=== PATIENT | female | born 1935 | race Caucasian/White ===

== ENCOUNTER 2021-07-29 15:26 | Inpatient (IN) ==
--- NOTE | 2021-07-29 16:21 | Emergency Department Note ---
Impression & Plan Unwitnessed fall, Fracture of femoral neck, right, closed, Traumatic hematoma of left forearm ED Provider Note CHIEF COMPLAINT: Fall HISTORY OF PRESENT ILLNESS: Shawna Pereira is an 86 year old female with history of dementia, HTN and DLD who presents to the Emergency Department with her keara rs for evaluation after she suffered an unwitnessed fall this afternoon. The patient is a poor historian secondary to dementia but states that she had gotten up from her chair when her legs seemed to give out from underneath of her which caused her to fall onto the floor. She denies hitting her head or losing consciousness during the episode but believes that she struck her left forearm off of something as she developed a bruise. The patient states that she was unable to get up off of the floor as there was nothing for her to help pull herself up. She waited on the floor for approximately 30 minutes until her daughter showed up for a visit and found her sitting on the floor in front of her chair. Daughter states that after they helped her up off of the floor, she was complaining of increased pain to her bilateral hips and left knee. She does have a known history of arthritis and wears a brace on her left knee but states that it is more painful than normal. The patient denies feeling lightheaded/dizzy or having chest pain, shortness of breath or any other prodromal symptoms prior to falling. She also denies recent fevers/chills, cough, abdominal pain, nausea, vomiting, diarrhea or urinary symptoms. The patient does live alone but family states that they visit almost every day and when they spoke to her on the phone yesterday she was doing well. The patient is not on any anticoagulants/antiplatelets. REVIEW OF SYSTEMS: 10 systems were reviewed and were negative unless otherwise stated in HPI as above PHYSICAL EXAM: VITALS: Vitals are noted on the nurse's note and reviewed by myself. Vital signs stable. General: Resting in bed, no acute distress HEENT: Normocephalic, atraumatic, PERRL, EOMI, mucous membranes moist, oropharynx clear Neck: No mid-line or paraspinal cervical tenderness Resp: Good inspiratory effort on room air, lung sounds clear bilaterally, no tenderness to palpation of the bilateral chest wall CV: Regular rate and rhythm, peripheral pulses palpated Back: No midline tenderness to the thoracic spine, no midline tenderness to the lumbar spine, no obvious step-offs or deformities Abd: Soft, non-tender to palpation MSK/Integ: No obvious long bone deformities. Hematoma to the left forearm with mild tenderness to palpation. ROM of the LUE remains intact without significant pain or difficulty, sensation and radial pulse intact. No tenderness to palpation over the RUE, continues with FROM without pain, sensation and radial pulse intact. Tender to palpation over the bilateral hips and left knee. ROM of the BLE intact but limited secondary to pain. Sensation and d/p pulses intact Neuro: Awake, alert, interacting and answering questions appropriately, asking some repetitive questions but re-directable Differential diagnosis includes fracture, subluxation, dislocation, contusion, ligamentous injury, neurovascular, skull fracture, intracranial injury, cervical spine injury as well as other pathologies were considered. EMERGENCY DEPARTMENT COURSE: Physical exam and history were performed. Nursing triage notes, EMR, and medication list were personally reviewed. Patient appears to have suffered an unwitnessed fall this afternoon. She is a poor historian secondary to dementia but states that she had gotten up from her chair when her legs seem to give out from underneath of her which caused her to fall onto the floor. When daughter went to visit her this afternoon, she was still sitting on the floor in front of her chair. Additional history as described above. On exam, the patient was resting in bed, no acute distress. She denied having pain to her head or neck and there were no outward signs of trauma here. She did not have any obvious long bone deformities. She did have a hematoma to her left forearm with mild tenderness to palpation. Range of motion of the LUE remained intact without significant pain or difficulty. Sensation and radial pulse intact. She did have tenderness to palpation over the bilateral hips and left knee. ROM of the BLE intact but limited secondary to pain. Sensation and DP pulse intact. She did also note increased pain to her right hip when I attempted to sit her up in bed. No other significant findings on exam as above. As the patient has a history of dementia and the fall was unwitnessed, CAT scan of the head and C-spine were obtained and reviewed by radiologist and myself as below. CAT scan of the head did show cerebral cortical atrophy and remote small vessel disease, likely consistent with her history of dementia. No acute skull fracture or intracerebral pathology. Cervical spine with osteopenia and marked degenerative disc and degenerative joint disease. Previous fusion of the cervical spine from C2-C5 and osteopenia. No acute osseous pathology. X-rays of the left forearm, pelvis/bilateral hips and left knee were also obtained and reviewed by radiologist and myself as below. X-rays did show evidence for a nondisplaced, impacted fracture of the right femoral neck as well as osteopenia and osteoarthritis. Upon reevaluation, the patient was doing well. I discussed the results of the above findings with her and her daughters at bedside. I also contacted Dr. Aguirre of orthopedics who recommended admission with the hospitalist. I updated the patient and her daughters on my discussion with Dr. Aguirre and his recommendations to stay in the hospital. Although the patient was apprehensive to stay, she eventually agreed as her daughters had also agreed that it is in her best interest and the safest option for her until further interventions can be arranged for her right hip fracture. [facility] the patient for further management. The patient and her daughters verbalized understanding and agreement with this treatment plan. The chart was completed utilizing [employer] Speech Voice Recognition Software. Grammatical errors, random word insertions, pronoun errors, and incomplete sentences are an occasional consequence of this system due to software limitations, ambient noise, and hardware issues. Any formal questions or concerns about the content, text, or information contained within the body of this dictation should be directly addressed to the provider for clarification. Past Med/Surg History Medical History (Updated 07/29/21 @ 22:45 by Hailey Agrawal PA-C) Dementia Dyslipidemia HTN (hypertension) Surgical History (Updated 07/29/21 @ 22:44 by Hailey Agrawal PA-C) No pertinent past surgical history Social History Smoking Status: Never smoker Feels Safe at Home: Yes Allergies Allergies Allergy/AdvReac Type Severity Reaction Status Date / Time No Known Allergies Verified 07/29/21 19:02 Home Meds Home Medications Medication Instructions Recorded Confirmed lisinopril 20 mg tablet 20 mg PO QAM 07/29/21 07/29/21 multivitamin with minerals-folic 2 tab PO QAM 03/08/22 03/08/22 acid 200 mcg chewable tablet (Adult Multivitamin Gummies) simvastatin 10 mg tablet 1 mg PO QPM 07/29/21 07/29/21 Results & Data (ED) Vital Signs Vital Signs - 24 hr 07/29/21 15:29 07/29/21 19:00 Temperature 36.8 C Temperature Source Temporal Artery Scan Pulse Rate 97 H Pulse Rate [Left Finger] 98 H Respiratory Rate 18 21 Respiratory Effort / Characteristics Non-Labored Blood Pressure 183/77 H Blood Pressure [Left Arm] 155/71 H Blood Pressure Mean 112 Blood Pressure Mean [Left Arm] 99 Blood Pressure Position Sitting Pulse Oximetry 98 98 Oxygen Delivery Method Room Air Room Air Sepsis Recent Fever Within 48 Hours No Sepsis New/Unexplained Change in Mental Status No Sepsis Action Taken by Nursing No Action Required Laboratory Data Lab Results 07/29/21 Range/Units 19:07 SARS-CoV-2, RNA, NAAT NEGATIVE (NEGATIVE) Imaging Data Radiologist's Impression: Cervical Spine CT 07/29/21 16:03 CT cervical spine wo con CLINICAL HISTORY: Unwitnessed fall, dementia . Neck pain COMPARISON STUDY: No previous studies for comparison. CT DOSE: TECHNIQUE: Standard CT of the Cervical Spine was performed without IV contrast. A dose lowering technique was utilized adhering to the principles of ALARA. FINDINGS: Bones: The bones are diffusely osteopenic. There is straightening of expected cervical lordosis with evidence for fusion of the C2-C5 vertebral bodies anteriorly and there posterior elements. There is no evidence for an acute fracture or malalignment. The heights of the vertebral bodies are maintained. The vertebral bodies are in anatomic alignment. The odontoid is intact. Degenerative changes are seen at the atlantoaxial articulation. Disc spaces: There is marked disc space narrowing and disc loss at C2-C5 there is marked disc space narrowing at C6-7. Apophyseal joints: Marked degenerative apophyseal joint disease and fusion of the apophyseal joints is again noted throughout the cervical spine. Soft tissues: The prevertebral soft tissues are within normal limits. IMPRESSION: 1. Osteopenia with no acute osseous pathology. 2. Fusion of the cervical spine from C2 through C5 involving both vertebral bodies and posterior elements. 3. Marked degenerative disc and degenerative joint disease are also present. ACT 112: Negative or not required by law. Electronically signed by: Jorge Conde M.D. 07/29/2021 4:44 PM Forearm X-Ray 07/29/21 16:03 XR forearm LT 2V CLINICAL HISTORY: Fall, hematoma. COMPARISON STUDY: No previous studies for comparison. TECHNIQUE: AP and lateral left forearm views FINDINGS: Bones: The bones are osteopenic. There is no evidence for an acute fracture or dislocation. There is no lytic or blastic lesion. Joints: There is marked narrowing of the wrist joint space. The elbow joint appears intact. The bones are in anatomic alignment. Soft tissues: There is no focal soft tissue abnormality. There is no radiopaque foreign body. IMPRESSION: 1. No acute osseous pathology. 2. Osteopenia and osteoarthritis. ACT 112: Negative or not required by law. Electronically signed by: Jorge Conde M.D. 07/29/2021 6:[address] 07/29/21 16:03 CT head/brain wo con CLINICAL HISTORY: Unwitnessed fall, dementia COMPARISON STUDY: 07/04/2009 CT DOSE: 977.39 mGy.cm TECHNIQUE: Standard CT of the Brain was performed without IV contrast. A dose lowering technique was utilized adhering to the principles of ALARA. FINDINGS: Extraaxial space: There is no evidence for subdural hematoma. There are no extra-axial fluid collections. Ventricles and cisterns: The ventricles are mildly dilated bilaterally. There is no evidence for midline shift or mass effect. Parenchyma: There is no subarachnoid or intraparenchymal hemorrhage. There is no evidence for an acute infarct or cerebral edema. There is mild cerebral cortical atrophy and decreased attenuation in the periventricular white matter representing remote small vessel disease. There are no gross mass lesions. Osseous structures: There is no evidence for an acute fracture. The visualized paranasal sinuses are clear. The mastoid air cells are clear bilaterally. Soft tissues: There is no evidence for focal soft tissue swelling. IMPRESSION: 1. No acute intracerebral pathology. 2. Cerebral cortical atrophy and remote small vessel disease. ACT 112: Negative or not required by law. Electronically signed by: Jorge Conde M.D. 07/29/2021 4:40 PM Hip/Pelvis X-Ray 07/29/21 16:03 XR hip AROLDO 2v w pelvis CLINICAL HISTORY: Fall, pain. COMPARISON STUDY: No previous studies for comparison. TECHNIQUE: AP pelvis and bilateral hips 2 views FINDINGS: Bones: The bones are osteopenic. There is evidence for an impacted subcapital fracture of the right femoral neck particularly laterally. No other definite evidence for fracture is seen. The remaining visualized bones of the pelvis are intact. There is no lytic or blastic lesion. Joints: There is marked narrowing of the right hip joint space and moderate narrowing of the left hip joint space. The bones are in anatomic alignment. Soft tissues: There is no focal soft tissue abnormality. There is no radiopaque foreign body. IMPRESSION: 1. Osteopenia and osteoarthritis. 2. Evidence for a nondisplaced, impacted fracture of the right femoral neck particularly along the lateral aspect. If indicated clinically, CT could be obtained for further evaluation. ACT 112: Negative or not required by law. Electronically signed by: Jorge Conde M.D. 07/29/2021 6:00 PM Knee X-Ray 07/29/21 16:03 XR knee LT 3V CLINICAL HISTORY: Fall, pain. COMPARISON STUDY: No previous studies for comparison. TECHNIQUE: 4 left knee views FINDINGS: Bones: The bones are osteopenic. There is no evidence for an acute fracture or dislocation. There is no lytic or blastic lesion. Joints: There is moderate narrowing of the lateral joint compartment and patellofemoral joint. There is no evidence for an intra-articular effusion. The bones are in anatomic alignment. Soft tissues: There is no focal soft tissue abnormality. There is no radiopaque foreign body. IMPRESSION: 1. No acute osseous pathology. 2. Osteopenia and osteoarthritis. ACT 112: Negative or not required by law. Electronically signed by: Jorge Conde M.D. 07/29/2021 5:58 PM Discharge Plan Visit Data Chief Complaint: Fall Stated Complaint: FALL, HEMATOMA ON ARM, KNEE AND HIP PAIN ED Provider: Epifanio Graham ED Midlevel Provider: Hailey Agrawal Discharge Problem: Unwitnessed fall, Fracture of femoral neck, right, closed, Traumatic hematoma of left forearm Patient Disposition: Admitted As Inpatient Discharge Instructions Interventions: ED Discharge Assessment Last Done: 07/29/21 21:29
--- NOTE | 2021-07-29 16:42 | CT Scan Report ---
CT head/brain wo con CLINICAL HISTORY: Unwitnessed fall, dementia COMPARISON STUDY: 07/04/2009 CT DOSE: 977.39 mGy.cm TECHNIQUE: Standard CT of the Brain was performed without IV contrast. A dose lowering technique was utilized adhering to the principles of ALARA. FINDINGS: Extraaxial space: There is no evidence for subdural hematoma. There are no extra-axial fluid collecti ons. Ventricles and cisterns: The ventricles are mildly dilated bilaterally. There is no evidence for midl ine shift or mass effect. Parenchyma: There is no subarachnoid or intraparenchymal hemorrhage. There is no evidence for an acut e infarct or cerebral edema. There is mild cerebral cortical atrophy and decreased attenuation in the periventricular white matter representing remote small vessel disease. There are no gross mass lesio ns. Osseous structures: There is no evidence for an acute fracture. The visualized paranasal sinuses are clear. The mastoid air cells are clear bilaterally. Soft tissues: There is no evidence for focal soft tissue swelling. IMPRESSION: 1. No acute intracerebral pathology. 2. Cerebral cortical atrophy and remote small vessel disease. ACT 112: Negative or not required by law. Electronically signed by: Jorge Conde M.D. 07/29/2021 4:40 PM
--- NOTE | 2021-07-29 16:46 | CT Scan Report ---
CT cervical spine wo con CLINICAL HISTORY: Unwitnessed fall, dementia . Neck pain COMPARISON STUDY: No previous studies for comparison. CT DOSE: TECHNIQUE: Standard CT of the Cervical Spine was performed without IV contrast. A dose lowering ryan hnique was utilized adhering to the principles of ALARA. FINDINGS: Bones: The bones are diffusely osteopenic. There is straightening of expected cervical lordosis with evidence for fusion of the C2-C5 vertebral bodies anteriorly and there posterior elements. There is n o evidence for an acute fracture or malalignment. The heights of the vertebral bodies are maintained. The vertebral bodies are in anatomic alignment. The odontoid is intact. Degenerative changes are see n at the atlantoaxial articulation. Disc spaces: There is marked disc space narrowing and disc loss at C2-C5 there is marked disc space n arrowing at C6-7. Apophyseal joints: Marked degenerative apophyseal joint disease and fusion of the apophyseal joints i s again noted throughout the cervical spine. Soft tissues: The prevertebral soft tissues are within normal limits. IMPRESSION: 1. Osteopenia with no acute osseous pathology. 2. Fusion of the cervical spine from C2 through C5 involving both vertebral bodies and posterior sleetmute ents. 3. Marked degenerative disc and degenerative joint disease are also present. ACT 112: Negative or not required by law. Electronically signed by: Jorge Conde M.D. 07/29/2021 4:44 PM
--- NOTE | 2021-07-29 18:00 | XRay Report ---
XR knee LT 3V CLINICAL HISTORY: Fall, pain. COMPARISON STUDY: No previous studies for comparison. TECHNIQUE: 4 left knee views FINDINGS: Bones: The bones are osteopenic. There is no evidence for an acute fracture or dislocation. There is no lytic or blastic lesion. Joints: There is moderate narrowing of the lateral joint compartment and patellofemoral joint. There is no evidence for an intra-articular effusion. The bones are in anatomic alignment. Soft tissues: There is no focal soft tissue abnormality. There is no radiopaque foreign body. IMPRESSION: 1. No acute osseous pathology. 2. Osteopenia and osteoarthritis. ACT 112: Negative or not required by law. Electronically signed by: Jorge Conde M.D. 07/29/2021 5:58 PM
--- NOTE | 2021-07-29 18:02 | XRay Report ---
XR hip AROLDO 2v w pelvis CLINICAL HISTORY: Fall, pain. COMPARISON STUDY: No previous studies for comparison. TECHNIQUE: AP pelvis and bilateral hips 2 views FINDINGS: Bones: The bones are osteopenic. There is evidence for an impacted subcapital fracture of the right f emoral neck particularly laterally. No other definite evidence for fracture is seen. The remaining vi sualized bones of the pelvis are intact. There is no lytic or blastic lesion. Joints: There is marked narrowing of the right hip joint space and moderate narrowing of the left hip joint space. The bones are in anatomic alignment. Soft tissues: There is no focal soft tissue abnormality. There is no radiopaque foreign body. IMPRESSION: 1. Osteopenia and osteoarthritis. 2. Evidence for a nondisplaced, impacted fracture of the right femoral neck particularly along the la teral aspect. If indicated clinically, CT could be obtained for further evaluation. ACT 112: Negative or not required by law. Electronically signed by: Jorge Conde M.D. 07/29/2021 6:00 PM
--- NOTE | 2021-07-29 18:03 | XRay Report ---
XR forearm LT 2V CLINICAL HISTORY: Fall, hematoma. COMPARISON STUDY: No previous studies for comparison. TECHNIQUE: AP and lateral left forearm views FINDINGS: Bones: The bones are osteopenic. There is no evidence for an acute fracture or dislocation. There is no lytic or blastic lesion. Joints: There is marked narrowing of the wrist joint space. The elbow joint appears intact. The bones are in anatomic alignment. Soft tissues: There is no focal soft tissue abnormality. There is no radiopaque foreign body. IMPRESSION: 1. No acute osseous pathology. 2. Osteopenia and osteoarthritis. ACT 112: Negative or not required by law. Electronically signed by: Jorge Conde M.D. 07/29/2021 6:01 PM
--- NOTE | 2021-07-29 21:30 | CT Scan Report ---
CT hip RT wo con CLINICAL HISTORY: Status post fall with right hip pain. Suspicion of a subcapital fracture on standar d radiographs. COMPARISON STUDY: Standard radiographs from 07/29/2021 CT DOSE: 1102.68 mGy.cm TECHNIQUE: Standard CT of the right hip is performed without IV contrast. Multiplanar reconstruction is performed. A dose lowering technique was utilized adhering to the principles of ALARA. FINDINGS: Bones: The bones are osteopenic. By CT, there is no evidence for an impacted fracture of the right fe moral neck as suspected radiographically. There are no lytic or blastic lesions. Joints: There is marked narrowing of the right hip joint space particularly superiorly. Subchondral s clerosis and subchondral cyst formation are present. The bones are in anatomic alignment. Soft tissues: There is no focal soft tissue swelling. There are no focal fluid collections. IMPRESSION: 1. Osteopenia with no evidence for an impacted subcapital fracture as suspected radiographically. 2. Marked osteoarthritis of the right hip. ACT 112: Negative or not required by law. Electronically signed by: Jorge Conde M.D. 07/29/2021 9:29 PM
--- NOTE | 2021-07-29 21:35 | CT Scan Report ---
CT pelvis wo con CLINICAL HISTORY: Status post fall with right hip pain. Evaluate for right subcapital fracture COMPARISON: Standard radiographs from 07/29/2021 CT DOSE: TECHNIQUE: Standard CT of the Pelvis without intravenous contrast was performed. This CT exam was performed using one or more of the following dose reduction techniques: Automated ex posure control, adjustment of the mA and/or kV according to patient size, or use of iterative reconst ruction technique. FINDINGS: Bones: The bones are osteopenic. There is no evidence for an acute fracture or dislocation. There are no lytic or blastic lesions. Joints: There is marked narrowing of the right hip joint space and moderate narrowing of the left hip joint space. The bones are in anatomic alignment. Soft tissues: There is no focal soft tissue swelling. There are no focal fluid collections. IMPRESSION: 1. No acute osseous pathology. 2. Osteopenia. 3. Osteoarthritis of both hips, right greater than left. ACT 112: Negative or not required by law. Electronically signed by: Jorge Conde M.D. 07/29/2021 9:33 PM
[2021-07-29] MEDS ORDERED: MoRPHine SULFATE 2 MG/ML CARP IV PRN (22:04)
[2021-07-29] MEDS ORDERED: SODIUM CHLORIDE 0.9% 1000ML 1,000 ML IV SCH (22:04)
[2021-07-29] MEDS ORDERED: ACETAMINOPHEN 325 MG TAB PO PRN (22:04)
[2021-07-29] MEDS ORDERED: SIMVASTATIN 10 MG TAB PO SCH (22:04)
[2021-07-29] MEDS ORDERED: POLYETHYLENE (MIRALAX) 17 GM PACK PO PRN (22:04)
--- NOTE | 2021-07-29 22:08 | History and Physical Report ---
DATE OF ADMISSION: 07/29/2021. CHIEF COMPLAINT: Status post fall and suspected right hip fracture. HISTORY OF PRESENT ILLNESS: An 86-year-old female with past medical history significant for hyperlipidemia, prediabetes, hypertension, stage III chronic kidney disease, history of mild dementia, who lives alone, ambulates okay at home. The patient daughter says she was found on the floor at home today. The patient states she was going to the other room when she slipped and fell down and she could not get up. When the daughter came, she was on the floor. Last time the daughter talked to her was yesterday and she was doing okay, and she was brought in here and she was found to have a left hip fracture on x ray. The patient does not want to stay in the hospital, but finally agreed to stay. She is sitting on the chair. With assistance, she was able to walk from the bed to the chair. Denies any significant pain at this time, seems comfortable. She did not hit her head when she fell and no loss of consciousness. Denies any headache. No blurred visions, no earache. She says no sore throat, no cough, no fever, no chills, no nausea, no vomiting, no chest pain or shortness of breath, no abdominal pain. Normal bowel and bladder movements. Daughter is in the room. ALLERGIES: No known drug allergies. PAST MEDICAL HISTORY: As mentioned above. PAST SURGICAL HISTORY: Total abdominal hysterectomy with removal of tubes. MEDICATIONS: The patient is on lisinopril 20 mg p.o. daily, vitamins 2 tablets p.o. a.m., simvastatin 10 mg p.o. daily. FAMILY HISTORY: Significant for sister had lung cancer, diabetes; mother had heart disorder. SOCIAL HISTORY: , lives alone. No smoking, no alcohol, no drug use. REVIEW OF SYSTEMS: As per HPI. Rest of review of systems is negative. PHYSICAL EXAMINATION: GENERAL: The patient is of moderate built, not in acute distress. VITAL SIGNS: Temperature 36.8, pulse 98, respiratory rate 21, blood pressure 155/71, oxygen 98% on room air. HEENT: Pupils equal, round and reactive to light. Oral mucosa moist. NECK: No JVD, no neck masses. CARDIOVASCULAR: S1 and S2 heard. Regular rate and rhythm. No murmur, no gallop. RESPIRATORY SYSTEM: Normal AP diameter. No accessory muscle use. No wheezing, no crackles. ABDOMEN: Soft, bowel sounds present, nontender, no distention. CENTRAL NERVOUS SYSTEM: Alert and oriented x3, mild confusion with dates. Speech is clear. No facial droop. Obeys simple commands. Insight is okay. Moves extremities. EXTREMITIES: Bilateral lower extremity, no edema, no erythema seen. Bruise seen of left fore arm. Able to move her lower extremities without any pain. LABORATORY DATA: COVID negative. IMAGING STUDIES: Show knee x-ray; osteopenia and osteoarthritis of the left knee. Pelvis and hip x-ray; osteopenia and osteoarthritis, evidence for a nondisplaced impacted fracture of the femoral neck, particularly on the lateral aspect. If indicated clinically, CT would be obtained for further evaluation. CT of the head; no acute findings. Left forearm x-ray; osteopenia, osteoarthritis. Cervical spine CT; osteopenia, fusion of the cervical spine from C2-C5 involving both vertebral bodies and posterior elements. ASSESSMENT AND PLAN: This is an 86-year-old female who presents with fall and found to have a left hip fracture. 1. Fall and Right hip fracture: The patient does not have significant pain, was able to ambulate to the chair with assistance, does not want to stay in the hospital. We will get a CT of the pelvis and CT hip to get a picture. Consult orthopedics. N.p.o. after midnight. Pain control. We will get a preoperative EKG and preoperative chest x-ray and laboratories. If labs, ekg and cxr ok the patient is at acceptable risk to proceed with surgery, if surgery planned 2. History of hypertension: Continue lisinopril with holding parameters. 3. Hyperlipidemia: Continue statin. 4. History of mild dementia: Monitor for any delirium. 5. History of prediabetes: Follow HbA1c level. Follow the blood sugars. 6. Deep venous thrombosis prophylaxis: Could not place sequential compression devices because of the hip fracture. Could not place anticoagulation because of any plan of procedures. Further anticoagulation as per orthopedics. DISPOSITION: Level 1 full code. PT/OT prior to discharge. Social service to help with discharge planning. Addendum: CT Right hip and pelvic CT: no fracture identified. Await ortho input. Pt/OT when able to. Job ID: [id number] [facility]
[2021-07-29] MEDS ORDERED: GLUCAGON FOR INJ 1 MG VIAL IM PRN (23:00)
[2021-07-29] MEDS ORDERED: GLUCOSE 10 TABS/TUBE PO PRN (23:00)
[2021-07-29] MEDS ORDERED: DEXTROSE 50% 50 ML SYRINGE IV PRN (23:00)
[2021-07-29] MEDS ORDERED: GLUCOSE 40% GEL 15 GM TUBE PO PRN (23:00)
[2021-07-29] MEDS ORDERED: CARBOHYDRATES FOR HYPOGLYCEMIA PO PRN (23:00)
[2021-07-29] MEDS: SIMVASTATIN 10 MG TAB PO SCH (23:47)
[2021-07-30] MEDS ORDERED: INSULIN ASPART PER UNIT SC SCH (06:00)
[2021-07-30 06:29] LABS: Basophils # (auto) 0.02 K/uL (0-0.2); Basophils % (auto) 0.3 %; Eosinophils # (auto) 0.08 K/uL (0-0.5); Eosinophils % (auto) 1.1 %; Hematocrit (blood only) 35.6 % (37-47); Hemoglobin 12.2 g/dL (12.0-16.0); Immature Granulocytes # (auto) 0.01 K/uL (0.00-0.02); Immature Granulocytes % (auto) 0.1 %; Lymphocytes # (auto) 2.59 K/uL (1.2-3.4); Lymphocytes % (auto) 34.7 %; Mean Corpuscular Hemoglobin 29.8 pg (25-34); Mean Corpuscular Hgb Conc 34.3 g/dL (32-36); Mean Platelet Volume 9.4 fL (7.4-10.4); Monocytes # (auto) 0.67 K/uL (0.11-0.59); Neutrophils # (auto) 4.09 K/uL (1.4-6.5); Neutrophils % (auto) 54.8 %; Platelet Count 251 K/uL (130-400); RDW Coefficient of Variation 12.9 % (11.5-14.5); RDW Standard Deviation 41.2 fL (36.4-46.3); Red Blood Count 4.09 M/uL (4.2-5.4); White Blood Count 7.46 K/uL (4.8-10.8)
[2021-07-30 06:48] LABS: BUN Creatinine Ratio 12.5 (10-20); Calcium 8.3 mg/dl (8.5-10.1); Creatinine Clr Calc Pharmacy 56.8 ml/min; Est GFR (African American) 87.9 ml/min; Est GFR (Non-African American) 75.8 ml/min; Magnesium 1.9 mg/dl (1.7-2.4); Potassium 3.7 mmol/L (3.5-5.1)
--- NOTE | 2021-07-30 07:07 | XRay Report ---
XR chest 1V portable HISTORY: 86 years-old Female pre op preoperative exam. No acute chest complaints. COMPARISON: None TECHNIQUE: AP view of the chest FINDINGS: The cardiac silhouette is upper limits of normal in size. Mitral annular calcifications. No pneumotho rax, pleural effusion, airspace consolidation or overt pulmonary edema. Osteoarthritis of the shoulde rs. The bones appear grossly intact. IMPRESSION: Cardiomegaly without acute process. ACT 112: Negative or not required by law. The above report was generated using voice recognition software. It may contain grammatical, syntax o r spelling errors. Electronically signed by: Konstantin Menchaca M.D. 07/30/2021 7:06 AM
--- NOTE | 2021-07-30 08:01 | Orthopedic Consultation ---
Date of Consultation July 30, 2021 Assessment & Plan (1) Arthritis of right hip: (2) Right hip pain: We discussed the x-ray and CT scan findings with the patient and her daughter. Her physical exam is not consistent with a femoral neck fracture (particularly her ability to weight bear with minimal pain), and with a negative CT scan, do not feel that surgery is indicated. Recommend she mobilize with PT/OT WBAT with walker. She may discharge from orthopaedics standpoint. Follow-up Carla 2 weeks. (3) Unwitnessed fall: Supervising Physician Co-Signing Physician Notes I saw and examined the patient and spoke with Dr. Conde the radiologist who read her CT scan. He was quite confident there was no fracture in her hip, so don't believe MRI indicated at present. Agree with above note. Follow-up with me in 2 weeks with x-rays. Will need to return to ER or clinic immediately if her condition worsens. History of Present Illness Reason for Consultation: Questionable Right impacted femoral neck fracture Requesting Physician: Dr. Janes Aguirre Attending Physician: Chinyere Turner MD History of Present Illness This 86-year-old female was seen in the emergency department yesterday. Patient states she fell after tripping on the leg of her chair 2 days ago. She states that she fell onto her right side and yesterday had difficulty ambulating and was taken to the emergency department. Patient states that she does have pain in her right leg more so in her knee and the lateral aspect of her thigh. She states she is able to put weight down on it and is able to move her leg without significant pain. She denies chest pain, shortness of breath, fever, chills, sweats, lethargy or numbness or tingling in the right lower extremity. Allergies Allergy/AdvReac Type Severity Reaction Status Date / Time No Known Allergies Verified 07/29/21 19:02 Home Medications Medication Instructions Recorded Confirmed Type lisinopril 20 mg tablet 20 mg PO QAM 07/29/21 07/29/21 History multivitamin with minerals-folic 2 tab PO QAM 07/29/21 07/29/21 History acid 200 mcg chewable tablet (Adult Multivitamin Gummies) simvastatin 10 mg tablet 10 mg PO QPM 07/29/21 07/29/21 History calcium 600 mg capsule 1,200 mg PO DAILY 07/30/21 07/30/21 History cholecalciferol (vitamin D3) 10 10 mcg PO DAILY 07/30/21 07/30/21 History mcg (400 unit) capsule (Vitamin D3) Patient History Medical History Dementia Dyslipidemia HTN (hypertension) Obesity Surgical History No pertinent past surgical history Social History Smoking Status: Never smoker Second Hand Exposure: No; Do You Dip or Chew Tobacco: No; Tobacco Cessation Education Requested by Patient: No Hx Alcohol Use: Yes Alcohol type: beer Hx Substance Use: No Preferred Language: Panamanian Communication Ability: Impaired Bleaching Supervisor Required: No Beliefs That Will Affect Care: None Current Living Situation: Alone Other Information That Helps Us Care for You: No Feels Safe at Home: Yes Assistive Devices: Cane Review of Systems Review of Systems: All systems reviewed & are unremarkable except as noted in Subjective Physical Exam Physical Exam: Right lower extremity: Patient is able to perform an active straight leg raise test. She is able to actively dorsi and plantarflex her foot without difficulty. She does experience some tenderness to palpation over the medial aspect of the knee and there is mild edema. She has no pain with passive hip flexion to 90 degrees. There is no pain with passive external rotation to 50 degrees however patient does experience pain with internal rotation past 10 degrees. There is some mild tenderness to palpation over the femur just proximal to the greater trochanter. There is no edema, erythema, ecchymosis, warmth or palpable deformity. There is no shortening or external rotation. Quad strength is 4 out of 5. Patient is neurovascularly intact in right lower extremity. Her peripheral pulses are 2+. Her capillary refill is less than 2 seconds. Results & Data ([facility]) Vital Signs (Past 12 Hours) Vital Signs Temp Pulse Resp BP Pulse Ox 07/29/21 22:14 36.6 C 85 16 129/76 97 07/29/21 21:00 92 H 19 149/75 H 99 Diagnostic Findings Laboratory Results WBC 7.46 K/uL (4.8-10.8) 07/30/21 05:29 RBC 4.09 M/uL (4.2-5.4) L 07/30/21 05:29 Hgb 12.2 g/dL (12.0-16.0) 07/30/21 05:29 Hct 35.6 % (37-47) L 07/30/21 05:29 MCV 87.0 fL (80-100) 07/30/21 05:29 MCH 29.8 pg (25-34) 07/30/21 05: MCHC 34.3 g/dL (32-36) 07/30/21 05:29 RDW Std Deviation 41.2 fL (36.4-46.3) 07/30/21 05:29 RDW Coeff of Romel 12.9 % (11.5-14.5) 07/30/21 05:29 Plt Count 251 K/uL (130-400) 07/30/21 05:29 MPV 9.4 fL (7.4-10.4) 07/30/21 05:29 Immature Gran % (Auto) 0.1 % 07/30/21 05:29 Neut % (Auto) 54.8 % 07/30/21 05:29 Lymph % (Auto) 34.7 % 07/30/21 05:29 Barron % (Auto) 9.0 % 07/30/21 05:29 Eos % (Auto) 1.1 % 07/30/21 05:29 Baso % (Auto) 0.3 % 07/30/21 05:29 Neut # (Auto) 4.09 K/uL (1.4-6.5) 07/30/21 05:29 Lymph # (Auto) 2.59 K/uL (1.2-3.4) 07/30/21 05:29 Barron # (Auto) 0.67 K/uL (0.11-0.59) H 07/30/21 05:29 Eos # (Auto) 0.08 K/uL (0-0.5) 07/30/21 05:29 Baso # (Auto) 0.02 K/uL (0-0.2) 07/30/21 05:29 Immature Gran # (Auto) 0.01 K/uL (0.00-0.02) 07/30/21 05:29 Sodium 138 mmol/L (136-145) 07/30/21 05:29 Potassium 3.7 mmol/L (3.5-5.1) 07/30/21 05:29 Chloride 106 mmol/L (98-107) 07/30/21 05:29 Carbon Dioxide 24 mmol/L (21-32) 07/30/21 05:29 Anion Gap 8 (3-11) 07/30/21 05:29 BUN 9 mg/dl (6-23) 07/30/21 05:29 Creatinine 0.72 mg/dl (0.6-1.2) 07/30/21 05:29 Est Cr Clr Drug Dosing 56.8 ml/min 07/30/21 05:29 Est GFR ( Amer) 87.9 ml/min 07/30/21 05:29 Est GFR (Non-Af Amer) 75.8 ml/min 07/30/21 05:29 BUN/Creatinine Ratio 12.5 (10-20) 07/30/21 05:29 Glucose 98 mg/dl (70-99(Fasting)) 07/30/21 05:29 POC Glucose 105 mg/dl (70-99) H 07/30/21 05:54 Calcium 8.3 mg/dl (8.5-10.1) L 07/30/21 05:29 Magnesium 1.9 mg/dl (1.7-2.4) 07/30/21 05:29 SARS-CoV-2, RNA, NAAT NEGATIVE (NEGATIVE) 07/29/21 19:[address] 07/29/21 16:03 CT cervical spine wo con CLINICAL HISTORY: Unwitnessed fall, dementia . Neck pain COMPARISON STUDY: No previous studies for comparison. CT DOSE: TECHNIQUE: Standard CT of the Cervical Spine was performed without IV contrast. A dose lowering technique was utilized adhering to the principles of ALARA. FINDINGS: Bones: The bones are diffusely osteopenic. There is straightening of expected cervical lordosis with evidence for fusion of the C2-C5 vertebral bodies anteriorly and there posterior elements. There is no evidence for an acute fracture or malalignment. The heights of the vertebral bodies are maintained. The vertebral bodies are in anatomic alignment. The odontoid is intact. Degenerative changes are seen at the atlantoaxial articulation. Disc spaces: There is marked disc space narrowing and disc loss at C2-C5 there is marked disc space narrowing at C6-7. Apophyseal joints: Marked degenerative apophyseal joint disease and fusion of the apophyseal joints is again noted throughout the cervical spine. Soft tissues: The prevertebral soft tissues are within normal limits. IMPRESSION: 1. Osteopenia with no acute osseous pathology. 2. Fusion of the cervical spine from C2 through C5 involving both vertebral bodies and posterior elements. 3. Marked degenerative disc and degenerative joint disease are also present. ACT 112: Negative or not required by law. Electronically signed by: Jorge Conde M.D. 07/29/2021 4:44 PM Forearm X-Ray 07/29/21 16:03 XR forearm LT 2V CLINICAL HISTORY: Fall, hematoma. COMPARISON STUDY: No previous studies for comparison. TECHNIQUE: AP and lateral left forearm views FINDINGS: Bones: The bones are osteopenic. There is no evidence for an acute fracture or dislocation. There is no lytic or blastic lesion. Joints: There is marked narrowing of the wrist joint space. The elbow joint appears intact. The bones are in anatomic alignment. Soft tissues: There is no focal soft tissue abnormality. There is no radiopaque foreign body. IMPRESSION: 1. No acute osseous pathology. 2. Osteopenia and osteoarthritis. ACT 112: Negative or not required by law. Electronically signed by: Jorge Conde M.D. 07/29/2021 6:[address] 07/29/21 16:03 CT head/brain wo con CLINICAL HISTORY: Unwitnessed fall, dementia COMPARISON STUDY: 07/04/2009 CT DOSE: 977.39 mGy.cm TECHNIQUE: Standard CT of the Brain was performed without IV contrast. A dose lowering technique was utilized adhering to the principles of ALARA. FINDINGS: Extraaxial space: There is no evidence for subdural hematoma. There are no extra-axial fluid collections. Ventricles and cisterns: The ventricles are mildly dilated bilaterally. There is no evidence for midline shift or mass effect. Parenchyma: There is no subarachnoid or intraparenchymal hemorrhage. There is no evidence for an acute infarct or cerebral edema. There is mild cerebral cortical atrophy and decreased attenuation in the periventricular white matter representing remote small vessel disease. There are no gross mass lesions. Osseous structures: There is no evidence for an acute fracture. The visualized paranasal sinuses are clear. The mastoid air cells are clear bilaterally. Soft tissues: There is no evidence for focal soft tissue swelling. IMPRESSION: 1. No acute intracerebral pathology. 2. Cerebral cortical atrophy and remote small vessel disease. ACT 112: Negative or not required by law. Electronically signed by: Jorge Conde M.D. 07/29/2021 4:40 PM Hip/Pelvis X-Ray 07/29/21 16:03 XR hip AROLDO 2v w pelvis CLINICAL HISTORY: Fall, pain. COMPARISON STUDY: No previous studies for comparison. TECHNIQUE: AP pelvis and bilateral hips 2 views FINDINGS: Bones: The bones are osteopenic. There is evidence for an impacted subcapital fracture of the right femoral neck particularly laterally. No other definite evidence for fracture is seen. The remaining visualized bones of the pelvis are intact. There is no lytic or blastic lesion. Joints: There is marked narrowing of the right hip joint space and moderate narrowing of the left hip joint space. The bones are in anatomic alignment. Soft tissues: There is no focal soft tissue abnormality. There is no radiopaque foreign body. IMPRESSION: 1. Osteopenia and osteoarthritis. 2. Evidence for a nondisplaced, impacted fracture of the right femoral neck particularly along the lateral aspect. If indicated clinically, CT could be obtained for further evaluation. ACT 112: Negative or not required by law. Electronically signed by: Jorge Conde M.D. 07/29/2021 6:00 PM Knee X-Ray 07/29/21 16:03 XR knee LT 3V CLINICAL HISTORY: Fall, pain. COMPARISON STUDY: No previous studies for comparison. TECHNIQUE: 4 left knee views FINDINGS: Bones: The bones are osteopenic. There is no evidence for an acute fracture or dislocation. There is no lytic or blastic lesion. Joints: There is moderate narrowing of the lateral joint compartment and patellofemoral joint. There is no evidence for an intra-articular effusion. The bones are in anatomic alignment. Soft tissues: There is no focal soft tissue abnormality. There is no radiopaque foreign body. IMPRESSION: 1. No acute osseous pathology. 2. Osteopenia and osteoarthritis. ACT 112: Negative or not required by law. Electronically signed by: Jorge Conde M.D. 07/29/2021 5:[address] 07/29/21 20:41 CT pelvis wo con CLINICAL HISTORY: Status post fall with right hip pain. Evaluate for right subcapital fracture COMPARISON: Standard radiographs from 07/29/2021 CT DOSE: TECHNIQUE: Standard CT of the Pelvis without intravenous contrast was performed. This CT exam was performed using one or more of the following dose reduction techniques: Automated exposure control, adjustment of the mA and/or kV according to patient size, or use of iterative reconstruction technique. FINDINGS: Bones: The bones are osteopenic. There is no evidence for an acute fracture or dislocation. There are no lytic or blastic lesions. Joints: There is marked narrowing of the right hip joint space and moderate narrowing of the left hip joint space. The bones are in anatomic alignment. Soft tissues: There is no focal soft tissue swelling. There are no focal fluid collections. IMPRESSION: 1. No acute osseous pathology. 2. Osteopenia. 3. Osteoarthritis of both hips, right greater than left. ACT 112: Negative or not required by law. Electronically signed by: Jorge Conde M.D. 07/29/2021 9:[address] 07/29/21 20:42 CT hip RT wo con CLINICAL HISTORY: Status post fall with right hip pain. Suspicion of a subcapital fracture on standard radiographs. COMPARISON STUDY: Standard radiographs from 07/29/2021 CT DOSE: 1102.68 mGy.cm TECHNIQUE: Standard CT of the right hip is performed without IV contrast. Multiplanar reconstruction is performed. A dose lowering technique was utilized adhering to the principles of ALARA. FINDINGS: Bones: The bones are osteopenic. By CT, there is no evidence for an impacted fracture of the right femoral neck as suspected radiographically. There are no lytic or blastic lesions. Joints: There is marked narrowing of the right hip joint space particularly superiorly. Subchondral sclerosis and subchondral cyst formation are present. The bones are in anatomic alignment. Soft tissues: There is no focal soft tissue swelling. There are no focal fluid collections. IMPRESSION: 1. Osteopenia with no evidence for an impacted subcapital fracture as suspected radiographically. 2. Marked osteoarthritis of the right hip. ACT 112: Negative or not required by law. Electronically signed by: Jorge Conde M.D. 07/29/2021 9:29 PM Chest X-Ray 07/30/21 06:00 XR chest 1V portable HISTORY: 86 years-old Female pre op preoperative exam. No acute chest complaints. COMPARISON: None TECHNIQUE: AP view of the chest FINDINGS: The cardiac silhouette is upper limits of normal in size. Mitral annular calcifications. No pneumothorax, pleural effusion, airspace consolidation or overt pulmonary edema. Osteoarthritis of the shoulders. The bones appear grossly intact. IMPRESSION: Cardiomegaly without acute process. ACT 112: Negative or not required by law. The above report was generated using voice recognition software. It may contain grammatical, syntax or spelling errors. Electronically signed by: Konstantin Menchaca M.D. 07/30/2021 7:06 AM
[2021-07-30] MEDS: CEROVITE ADV FORMULA TAB PO SCH (08:05)
[2021-07-30] MEDS: lisinopril 20 MG TAB PO SCH (08:06)
[2021-07-30 08:12] LABS: Estimated Average Glucose 123 mg/dl; Hemoglobin A1C 5.9 % (4.5-5.6)
--- NOTE | 2021-07-30 08:34 | Electrocardiogram Report ---
Test Reason : Blood Pressure : / mmHG Vent. Rate : 084 BPM Atrial Rate : 084 BPM P-R Int : 176 ms QRS Dur : 066 ms QT Int : 378 ms P-R-T Axes : 065 019 043 degrees QTc Int : 446 ms Poor data quality, interpretation may be adversely affected Normal sinus rhythm Normal ECG No previous ECGs available Confirmed by Ajay Glass ([id number]) on 07/30/2021 8:34:20 AM Referred By: REFERRED SELF Confirmed By:Ajay Glass
--- NOTE | 2021-07-30 10:21 | Hospitalist Progress Note ---
Date of Service July 30, 2021 Assessment & Plan (1) Unwitnessed fall: (2) Right hip pain: (3) Pre-diabetes: (4) HTN (hypertension): (5) Dementia: (6) CKD (chronic kidney disease) stage 3, GFR 30-59 ml/min: Plan: This is a 86-year-old female who has significant past medical history of HTN, HLD, prediabetes, dementia, CKD stage III who presented to ED after unwitnessed fall and being found on floor by family. Patient states that she was walking, slipped, fell down and could not get up. Initial x-ray concerning for nondisplaced, impacted fracture of the right femoral neck. Dedicated CT scan was ordered which revealed osteopenia without evidence for impacted fracture; however marked osteoarthritis of right hip. Discussed case with Ortho Dr. Aguirre, initially surgery was recommended; however after revisualization of images on CT surgery has been canceled. No evidence of acute fx. Unwitnessed fall Right hip pain Osteoarthritis of right hip Admitted to med/surg Orthopedics consulted -no surgical indication at this time Consult PT/OT to determine needs - pt lives alone at home Scheduled Tylenol, ice to right hip d/c fluids and she is eating and drinking okay HTN Continue lisinopril Prediabetes A1c 5.9 No Medications indicated HLD Continue statin Dementia without behaviors Mental status waxes and wanes She was alert and oriented x3 for me; however nursing staff reports early this morning very confused Monitor closely for delirium, reorient frequently Family member asked to come in to keep pt calm at bedside DVT prophylaxis: Initiate Lovenox daily Dispo: Pending PT/OT evaluation, per discussion with CM daughters wish for encompass referral with eventual need for 24hr care. Full code PCP: Sudheer Patient was seen and examined in collaboration with Dr. Turner, please see addendum The chart was completed utilizing [employer] Speech voice recognition software. Grammatical errors, random word insertions, pronoun errors, and incomplete sentences are an occasional consequence of this system due to software limitations, ambient noise, and hardware issues. Any formal questions or concerns about the content, text, or information contained within the body of this dictation should be directly addressed to the provider for clarification. Admission and Anticipated Discharge Date Admission Date: July 29, 2021 Supervising Physician Co-Signing Physician Notes Patient was seen and evaluated independently. Chart reviewed. Case discussed with CONCHIS. Agree with assessment and plan as above Subjective Patient was seen and examined in room 375-2. Follow-up right hip pain and questionable hip fracture. She was admitted secondary to fall and right hip pain. Initial right hip x-ray was concerning for fracture; however follow-up CT revealed severe osteoarthritis without fracture. Case was discussed with orthopedics who also discussed with radiology again confirming no fracture. She will not undergo surgical intervention and will have physical and occupational therapy today. At rest she denies any pain. She further denies fever, chills, sweats, lightheadedness, dizziness, chest pain, shortness of breath, nausea, vomiting, abdominal pain. She lives alone at home and ambulates with a cane. At baseline she admits to being able to climb a flight of stairs without getting short of breath or chest pain. Per nursing staff patient was very confused for them this morning. Review of Systems Review of Systems: All systems reviewed & are unremarkable except as noted in HPI & below Physical Exam Physical Exam: Gen: WD/WN, elderly, female, lying in bed NAD, A&O x3 HEENT: Normocephalic, atraumatic, conjunctivae moist, sclerae anicteric, mucous membranes moist. Lung: Clear to Auscultation bilaterally, no wheezes/rales/rhonchi Heart: Regular rate, regular rhythm, no murmurs, rubs, or gallops Abdomen: Soft, NT, ND +BS x 4 Extremities: No edema Skin: Warm, no rash, negative turgor. Results & Data Results & Data ([facility]) Vital Signs (Past 12 Hours) Vital Signs Temp Pulse Resp BP Pulse Ox 07/30/21 07:45 36.6 C 93 H 18 162/65 H 95 07/29/21 22:14 36.6 C 85 16 129/76 97 Laboratory Results Short CBC 07/30/21 Range/Units 05:29 WBC 7.46 (4.8-10.8) K/uL Hgb 12.2 (12.0-16.0) g/dL Hct 35.6 L (37-47) % Plt Count 251 (130-400) K/uL BMP 07/30/21 05:29 Sodium 138 Potassium 3.7 Chloride 106 Carbon Dioxide 24 BUN 9 Creatinine 0.72 Glucose 98 Calcium 8.[address] R Hip IMPRESSION: 1. Osteopenia with no evidence for an impacted subcapital fracture as suspected radiographically. 2. Marked osteoarthritis of the right hip. Medications Administered Current Inpatient Medications Acetaminophen (Acetaminophen 325 Mg Tab) 650 mg PO Q4H PRN PRN Reason: pain/fever Stop: 08/28/21 22:03 Dextrose (Dextrose 50% 50 Ml Syringe) 25 - 50 ml IV UD PRN; Protocol PRN Reason: Hypoglycemia Protocol Stop: 08/28/21 22:59 Glucagon (Glucagon For Inj 1 Mg Vial) 1 mg IM UD PRN; Protocol PRN Reason: Hypoglycemia Protocol Stop: 08/28/21 22:59 Glucose (Glucose 40% Gel 15 Gm Tube) 15 - 30 gm PO UD PRN; Protocol PRN Reason: Hypoglycemia Protocol Stop: 08/28/21 22:59 Glucose (Glucose 10 Tabs/Tube) 4 - 8 tabs PO UD PRN; Protocol PRN Reason: Hypoglycemia Protocol Stop: 08/28/21 22:59 Sodium Chloride (Nss 1000ml) 1,000 mls @ 80 mls/hr IV .[id number] [facility] Stop: 07/30/21 23:03 Last Admin: 07/30/21 00:05 Dose: 80 mls/hr Documented by: Lisinopril (Lisinopril 20 Mg Tab) 20 mg PO QAM [facility] Stop: 08/29/21 08:59 Last Admin: 07/30/21 08:06 Dose: 20 mg Documented by: Miscellaneous (Carbohydrates For Hypoglycemia ) 15 - 30 gm PO UD PRN PRN Reason: Hypoglycemia Treatment Stop: 08/28/21 22:59 Morphine Sulfate (Morphine Sulfate 2 Mg/Ml Carp) 2 mg IV Q4H PRN PRN Reason: Pain Stop: 08/12/21 22:03 Multivitamins/Minerals (Cerovite Adv Formula Tab) 1 tab PO QAM [facility] Stop: 08/29/21 08:59 Last Admin: 07/30/21 08:05 Dose: 1 tab Documented by: Polyethylene Glycol (Polyethylene (Miralax) 17 Gm Pack) 17 gm PO DAILY PRN PRN Reason: Constipation Stop: 08/28/21 22:03 Simvastatin (Simvastatin 10 Mg Tab) 10 mg PO QPM [facility] Stop: 08/28/21 23:44 Last Admin: 07/29/21 23:47 Dose: 10 mg Documented by:
[2021-07-30] MEDS: ACETAMINOPHEN 500 MG TAB PO SCH ×3 (13:07→20:48)
[2021-07-30] MEDS: DOCUSATE SODIUM 100 MG CAP PO SCH (20:47)
[2021-07-30] MEDS: SIMVASTATIN 10 MG TAB PO SCH (20:48)
[2021-07-30] MEDS ORDERED: ENOXAPARIN INJ 40 MG/0.4 ML SYR SQ SCH (21:00)
[2021-07-31 07:08] LABS: Hematocrit (blood only) 37.9 % (37-47); Hemoglobin 13.2 g/dL (12.0-16.0); Mean Corpuscular Hemoglobin 30.2 pg (25-34); Mean Corpuscular Hgb Conc 34.8 g/dL (32-36); Mean Corpuscular Volume 86.7 fL (80-100); Mean Platelet Volume 9.5 fL (7.4-10.4); Platelet Count 266 K/uL (130-400); RDW Standard Deviation 41.9 fL (36.4-46.3); Red Blood Count 4.37 M/uL (4.2-5.4); White Blood Count 6.78 K/uL (4.8-10.8)
[2021-07-31] MEDS: ACETAMINOPHEN 500 MG TAB PO SCH (07:22)
[2021-07-31] MEDS: lisinopril 20 MG TAB PO SCH (07:23)
[2021-07-31] MEDS: DOCUSATE SODIUM 100 MG CAP PO SCH (07:23)
[2021-07-31] MEDS: CEROVITE ADV FORMULA TAB PO SCH (07:23)
[2021-07-31 07:34] LABS: BUN Creatinine Ratio 13.3 (10-20); Calcium 8.7 mg/dl (8.5-10.1); Creatinine Clr Calc Pharmacy 49.2 ml/min; Est GFR (Non-African American) 63.9 ml/min; Potassium 3.9 mmol/L (3.5-5.1)
[2021-07-31] MEDS ORDERED: CALCIUM 600MG + VIT D 400 IU TAB PO SCH (09:00)
[2021-07-31] MEDS ORDERED: CHOLECALCIFEROL 400 UNITS 10 MCG TAB PO SCH (09:00)
--- NOTE | 2021-07-31 09:55 | Orthopedic Progress Note ---
Date of Service July 31, 2021 Assessment & Plan (1) Right hip pain: Plan: May be out of bed as tolerated, recommended use with a walker weight bear as tolerated right lower extremity, range of motion as tolerated. Ice to right hip as needed for pain. PT/OT Elevate right leg as needed. Follow up in 2 weeks as scheduled. Call with problems, questions or concerns. Okay for discharge from ortho standpoint. Will sign off for now, call our office with any further questions. Admission and Anticipated Discharge Date Admission Date: July 29, 2021 Subjective Patient is doing well today, no complaints of pain in right hip. She dressed and ambulating throughout her room, without assistance. States that her hip pain has been improving the last week or so and that if she does get pain in anteriorly in the groin. No hip pain today. Physical Exam Musculoskeletal: Right hip moves freely and without discomfort today. Strength 5/5. No distal edema. Results & Data ([facility]) Vital Signs (Past 12 Hours) Vital Signs Temp Pulse Resp BP Pulse Ox 07/31/21 07:14 36.3 C L 89 18 119/70 97
--- NOTE | 2021-07-31 17:24 | Discharge Summary ---
Date of Service July 31, 2021 Admission HPI Per Admitting Provider An 86-year-old female with past medical history significant for hyperlipidemia, prediabetes, hypertension, stage III chronic kidney disease, history of mild dementia, who lives alone, ambulates okay at home. The patient daughter says she was found on the floor at home today. The patient states she was going to the other room when she slipped and fell down and she could not get up. When the daughter came, she was on the floor. Last time the daughter talked to her was yesterday and she was doing okay, and she was brought in here and she was found to have a left hip fracture on x ray. The patient does not want to stay in the hospital, but finally agreed to stay. She is sitting on the chair. With assistance, she was able to walk from the bed to the chair. Denies any significant pain at this time, seems comfortable. She did not hit her head when she fell and no loss of consciousness. Denies any headache. No blurred visions, no earache. She says no sore throat, no cough, no fever, no chills, no nausea, no vomiting, no chest pain or shortness of breath, no abdominal pain. Normal bowel and bladder movements. Daughter is in the room. Admission Exam Per Admitting Provider GENERAL: The patient is of moderate built, not in acute distress. VITAL SIGNS: Temperature 36.8, pulse 98, respiratory rate 21, blood pressure 155/71, oxygen 98% on room air. HEENT: Pupils equal, round and reactive to light. Oral mucosa moist. NECK: No JVD, no neck masses. CARDIOVASCULAR: S1 and S2 heard. Regular rate and rhythm. No murmur, no gallop. RESPIRATORY SYSTEM: Normal AP diameter. No accessory muscle use. No wheezing, no crackles. ABDOMEN: Soft, bowel sounds present, nontender, no distention. CENTRAL NERVOUS SYSTEM: Alert and oriented x3, mild confusion with dates. Speech is clear. No facial droop. Obeys simple commands. Insight is okay. Moves extremities. EXTREMITIES: Bilateral lower extremity, no edema, no erythema seen. Bruise seen of left fore arm. Able to move her lower extremities without any pain. Principal Diagnosis Fall, right hip pain Discharge Exam Constitutional WD/WN, vitals as above Respiratory normal respiratory effort, lungs clear to auscultation Cardiovascular Rate/Rhythm: regular rate and regular rhythm Vessels: normal peripheral pulses Extremities: no edema Gastrointestinal (Abdomen) Percussion/Palpation: abdomen soft; abdomen nontender Skin no rashes, warm and dry Neurologic no focal motor deficits Psychiatric Orientation: alert, oriented to person and cooperative; + not oriented to place and + not oriented to time Discharge Data Allergies Allergy/AdvReac Type Severity Reaction Status Date / Time No Known Allergies Verified 07/29/21 19:02 Consultations 07/30/21 08:00 Consult Orthopedic Surgery Routine Ordered Studies Laboratory Results WBC 6.78 K/uL (4.8-10.8) 07/31/21 06:30 RBC 4.37 M/uL (4.2-5.4) 07/31/21 06:30 Hgb 13.2 g/dL (12.0-16.0) 07/31/21 06:30 Hct 37.9 % (37-47) 07/31/21 06:30 MCV 86.7 fL (80-100) 07/31/21 06:30 MCH 30.2 pg (25-34) 07/31/21 06:30 MCHC 34.8 g/dL (32-36) 07/31/21 06:30 RDW Std Deviation 41.9 fL (36.4-46.3) 07/31/21 06:30 RDW Coeff of Romel 13.0 % (11.5-14.5) 07/31/21 06:30 Plt Count 266 K/uL (130-400) 07/31/21 06:30 MPV 9.5 fL (7.4-10.4) 07/31/21 06:30 Immature Gran % (Auto) 0.1 % 07/30/21 05:29 Neut % (Auto) 54.8 % 07/30/21 05:29 Lymph % (Auto) 34.7 % 07/30/21 05:29 [place] % (Auto) 9.0 % 07/30/21 05:29 Eos % (Auto) 1.1 % 07/30/21 05:29 Baso % (Auto) 0.3 % 07/30/21 05:29 Neut # (Auto) 4.09 K/uL (1.4-6.5) 07/30/21 05:29 Lymph # (Auto) 2.59 K/uL (1.2-3.4) 07/30/21 05:29 [place] # (Auto) 0.67 K/uL (0.11-0.59) H 07/30/21 05:29 Eos # (Auto) 0.08 K/uL (0-0.5) 07/30/21 05:29 Baso # (Auto) 0.02 K/uL (0-0.2) 07/30/21 05:29 Immature Gran # (Auto) 0.01 K/uL (0.00-0.02) 07/30/21 05:29 Sodium 138 mmol/L (136-145) 07/31/21 06:30 Potassium 3.9 mmol/L (3.5-5.1) 07/31/21 06:30 Chloride 105 mmol/L (98-107) 07/31/21 06:30 Carbon Dioxide 24 mmol/L (21-32) 07/31/21 06:30 Anion Gap 9 (3-11) 07/31/21 06:30 BUN 11 mg/dl (6-23) 07/31/21 06:30 Creatinine 0.83 mg/dl (0.6-1.2) 07/31/21 06:30 Est Cr Clr Drug Dosing 49.2 ml/min 07/31/21 06:30 Est GFR ( Amer) 74.0 ml/min 07/31/21 06:30 Est GFR (Non-Af Amer) 63.9 ml/min 07/31/21 06:30 BUN/Creatinine Ratio 13.3 (10-20) 07/31/21 06:30 Glucose 110 mg/dl (70-99(Fasting)) H 07/31/21 06:30 POC Glucose 105 mg/dl (70-99) H 07/30/21 05:54 Estimat Average Glucose 123 mg/dl 07/30/21 05:29 Hemoglobin A1c 5.9 % (4.5-5.6) H 07/30/21 05:29 Calcium 8.7 mg/dl (8.5-10.1) 07/31/21 06:30 Magnesium 2.0 mg/dl (1.7-2.4) 07/31/21 06:30 SARS-CoV-2, RNA, NAAT NEGATIVE (NEGATIVE) 07/29/21 19:[address] 07/29/21 16:03 CT cervical spine wo con CLINICAL HISTORY: Unwitnessed fall, dementia . Neck pain COMPARISON STUDY: No previous studies for comparison. CT DOSE: TECHNIQUE: Standard CT of the Cervical Spine was performed without IV contrast. A dose lowering technique was utilized adhering to the principles of ALARA. FINDINGS: Bones: The bones are diffusely osteopenic. There is straightening of expected cervical lordosis with evidence for fusion of the C2-C5 vertebral bodies anteriorly and there posterior elements. There is no evidence for an acute fracture or malalignment. The heights of the vertebral bodies are maintained. The vertebral bodies are in anatomic alignment. The odontoid is intact. Degenerative changes are seen at the atlantoaxial articulation. Disc spaces: There is marked disc space narrowing and disc loss at C2-C5 there is marked disc space narrowing at C6-7. Apophyseal joints: Marked degenerative apophyseal joint disease and fusion of the apophyseal joints is again noted throughout the cervical spine. Soft tissues: The prevertebral soft tissues are within normal limits. IMPRESSION: 1. Osteopenia with no acute osseous pathology. 2. Fusion of the cervical spine from C2 through C5 involving both vertebral bodies and posterior elements. 3. Marked degenerative disc and degenerative joint disease are also present. ACT 112: Negative or not required by law. Electronically signed by: Jorge Conde M.D. 07/29/2021 4:44 PM Forearm X-Ray 07/29/21 16:03 XR forearm LT 2V CLINICAL HISTORY: Fall, hematoma. COMPARISON STUDY: No previous studies for comparison. TECHNIQUE: AP and lateral left forearm views FINDINGS: Bones: The bones are osteopenic. There is no evidence for an acute fracture or dislocation. There is no lytic or blastic lesion. Joints: There is marked narrowing of the wrist joint space. The elbow joint appears intact. The bones are in anatomic alignment. Soft tissues: There is no focal soft tissue abnormality. There is no radiopaque foreign body. IMPRESSION: 1. No acute osseous pathology. 2. Osteopenia and osteoarthritis. ACT 112: Negative or not required by law. Electronically signed by: Jorge Conde M.D. 07/29/2021 6:[address] 07/29/21 16:03 CT head/brain wo con CLINICAL HISTORY: Unwitnessed fall, dementia COMPARISON STUDY: 07/04/2009 CT DOSE: 977.39 mGy.cm TECHNIQUE: Standard CT of the Brain was performed without IV contrast. A dose lowering technique was utilized adhering to the principles of ALARA. FINDINGS: Extraaxial space: There is no evidence for subdural hematoma. There are no extra-axial fluid collections. Ventricles and cisterns: The ventricles are mildly dilated bilaterally. There is no evidence for midline shift or mass effect. Parenchyma: There is no subarachnoid or intraparenchymal hemorrhage. There is no evidence for an acute infarct or cerebral edema. There is mild cerebral cortical atrophy and decreased attenuation in the periventricular white matter representing remote small vessel disease. There are no gross mass lesions. Osseous structures: There is no evidence for an acute fracture. The visualized paranasal sinuses are clear. The mastoid air cells are clear bilaterally. Soft tissues: There is no evidence for focal soft tissue swelling. IMPRESSION: 1. No acute intracerebral pathology. 2. Cerebral cortical atrophy and remote small vessel disease. ACT 112: Negative or not required by law. Electronically signed by: Jorge Conde M.D. 07/29/2021 4:40 PM Hip/Pelvis X-Ray 07/29/21 16:03 XR hip AROLDO 2v w pelvis CLINICAL HISTORY: Fall, pain. COMPARISON STUDY: No previous studies for comparison. TECHNIQUE: AP pelvis and bilateral hips 2 views FINDINGS: Bones: The bones are osteopenic. There is evidence for an impacted subcapital fracture of the right femoral neck particularly laterally. No other definite evidence for fracture is seen. The remaining visualized bones of the pelvis are intact. There is no lytic or blastic lesion. Joints: There is marked narrowing of the right hip joint space and moderate narrowing of the left hip joint space. The bones are in anatomic alignment. Soft tissues: There is no focal soft tissue abnormality. There is no radiopaque foreign body. IMPRESSION: 1. Osteopenia and osteoarthritis. 2. Evidence for a nondisplaced, impacted fracture of the right femoral neck par ticularly along the lateral aspect. If indicated clinically, CT could be obtained for further evaluation. ACT 112: Negative or not required by law. Electronically signed by: Jorge Conde M.D. 07/29/2021 6:00 PM Knee X-Ray 07/29/21 16:03 XR knee LT 3V CLINICAL HISTORY: Fall, pain. COMPARISON STUDY: No previous studies for comparison. TECHNIQUE: 4 left knee views FINDINGS: Bones: The bones are osteopenic. There is no evidence for an acute fracture or dislocation. There is no lytic or blastic lesion. Joints: There is moderate narrowing of the lateral joint compartment and patellofemoral joint. There is no evidence for an intra-articular effusion. The bones are in anatomic alignment. Soft tissues: There is no focal soft tissue abnormality. There is no radiopaque foreign body. IMPRESSION: 1. No acute osseous pathology. 2. Osteopenia and osteoarthritis. ACT 112: Negative or not required by law. Electronically signed by: Jorge Conde M.D. 07/29/2021 5:[address] 07/29/21 20:41 CT pelvis wo con CLINICAL HISTORY: Status post fall with right hip pain. Evaluate for right subcapital fracture COMPARISON: Standard radiographs from 07/29/2021 CT DOSE: TECHNIQUE: Standard CT of the Pelvis without intravenous contrast was performed. This CT exam was performed using one or more of the following dose reduction techniques: Automated exposure control, adjustment of the mA and/or kV according to patient size, or use of iterative reconstruction technique. FINDINGS: Bones: The bones are osteopenic. There is no evidence for an acute fracture or dislocation. There are no lytic or blastic lesions. Joints: There is marked narrowing of the right hip joint space and moderate narr owing of the left hip joint space. The bones are in anatomic alignment. Soft tissues: There is no focal soft tissue swelling. There are no focal fluid collections. IMPRESSION: 1. No acute osseous pathology. 2. Osteopenia. 3. Osteoarthritis of both hips, right greater than left. ACT 112: Negative or not required by law. Electronically signed by: Jorge Conde M.D. 07/29/2021 9:[address] 07/29/21 20:42 CT hip RT wo con CLINICAL HISTORY: Status post fall with right hip pain. Suspicion of a subcapital fracture on standard radiographs. COMPARISON STUDY: Standard radiographs from 07/29/2021 CT DOSE: 1102.68 mGy.cm TECHNIQUE: Standard CT of the right hip is performed without IV contrast. Multiplanar reconstruction is performed. A dose lowering technique was utilized adhering to the principles of ALARA. FINDINGS: Bones: The bones are osteopenic. By CT, there is no evidence for an impacted fracture of the right femoral neck as suspected radiographically. There are no lytic or blastic lesions. Joints: There is marked narrowing of the right hip joint space particularly superiorly. Subchondral sclerosis and subchondral cyst formation are present. The bones are in anatomic alignment. Soft tissues: There is no focal soft tissue swelling. There are no focal fluid collections. IMPRESSION: 1. Osteopenia with no evidence for an impacted subcapital fracture as suspected radiographically. 2. Marked osteoarthritis of the right hip. ACT 112: Negative or not required by law. Electronically signed by: Jorge Conde M.D. 07/29/2021 9:29 PM Chest X-Ray 07/30/21 06:00 XR chest 1V portable HISTORY: 86 years-old Female pre op preoperative exam. No acute chest complaints. COMPARISON: None TECHNIQUE: AP view of the chest FINDINGS: The cardiac silhouette is upper limits of normal in size. Mitral annular calcifications. No pneumothorax, pleural effusion, airspace consolidation or overt pulmonary edema. Osteoarthritis of the shoulders. The bones appear grossly intact. IMPRESSION: Cardiomegaly without acute process. ACT 112: Negative or not required by law. The above report was generated using voice recognition software. It may contain grammatical, syntax or spelling errors. Electronically signed by: Konstantin Menchaca M.D. 07/30/2021 7:06 AM Hospital Course (1) Unwitnessed fall: (2) Right hip pain: (3) Pre-diabetes: (4) HTN (hypertension): (5) Dementia: (6) CKD (chronic kidney disease) stage 3, GFR 30-59 ml/min: This is a 86-year-old female who has significant past medical history of HTN, HLD, prediabetes, dementia, CKD stage III who presented to ED after unwitnessed fall and being found on floor by family. Patient states that she was walking, slipped, fell down and could not get up. Initial x-ray concerning for nondisplaced, impacted fracture of the right femoral neck. Dedicated CT scan was ordered which revealed osteopenia without evidence for impacted fracture; however marked osteoarthritis of right hip. Discussed case with Ortho Dr. Aguirre, initially surgery was recommended; however after revisualization of images on CT, surgery was canceled. No evidence of acute fx. Unwitnessed fall Right hip pain Osteoarthritis of right hip PT/OT recommended SNF vs home with 24-hour care Daughters arranged 24-hour care along with home health Patient can be weightbearing as tolerated with use of walker Outpatient follow-up with Ortho in 2 weeks HTN Continue lisinopril Prediabetes A1c 5.9 No Medications indicated HLD Continue statin Dementia without behaviors Mental status waxes and wanes At baseline the day of discharge Total Time Total Time Spent Total Time Spent (In Minutes): 35 Discharge Plan Discharge Items Patient Disposition: Home - Home Health Services Reason For Visit: Fall, right hip pain Discharge Diagnosis: Osteoarthritis of right hip Activity: As commented below Activity Comment: As tolerated per PT/OT, use a walker Weightbearing: Right weightbearing Weightbearing Comment: Weightbearing as tolerated Non-emergency contact: Primary Care Provider Call non-emergency contact if: you have any medication questions, your symptoms worsen, your pain is not controlled and you have a fever Follow-up/Referrals: Ellis Jeong PA-C [Physician Linux Unix Administrator] - 08/13/21 8:00 am Rodrick Willard MD [Primary Care Provider] - 08/08/21 10:00 am (Date & Time 08/08/2021 10:00 AM Provider Rodrick Willard MD Department [facility] ) Diet: Heart Healthy Addtl Attending Provider Instructions: You came to the hospital for evaluation after a fall and right hip pain. There was no sign of fracture on the CT scan. You were evaluated by orthopedics. Please see their discharge instructions below. You may use Tylenol as needed for pain (no more than 3 g in 24 hours). Home health is being arranged for you. Continue to take all other medication as prescribed. Follow-up appointments have been made for you with your PCP and orthopedics, please keep his appointments as scheduled. It was a pleasure taking care of you. If you need to reach a member of the [facility] hospitalist team about any, please call [phone]. TRAN Looney Addtl Automotive Sales Associate Provider Instructions: weight bear as tolerated right lower extremity use walker to assist with ambulaton Ice as needed to right hip/groin. Allowed for full range of motion right hip. Follow up with Cari Jeong PA-C at [facility] on 08/13/21 @ 8:00 AM. With question call the clinic at [phone]. Pending Studies at Discharge: No Stand-Alone Forms: My [facility], Smoking Cessation Medications and DC Order Prescriptions: Continued lisinopril 20 mg tablet 20 mg PO QAM RF: 0 simvastatin 10 mg tablet 10 mg PO QPM RF: 0 Adult Multivitamin Gummies 200 mcg Tablet,Chewable 2 tab PO QAM RF: 0 calcium 600 mg Capsule 1,200 mg PO DAILY RF: 0 cholecalciferol (vitamin D3) [Vitamin D3] 10 mcg (400 unit) Capsule 10 mcg PO DAILY RF: 0 Discharge Orders: Discharge Order (Routine); Ordered 07/31/21 Ordered By: Velma Pang Admission Data Admit Date/Time: 07/29/21 20:41 Attending Provider: Chinyere Turner Admit Provider: Donta Núñez Primary Care Provider: Rodrick Willard Other Providers: Janes Aguirre ; Donta Núñez ; Maxine Perez ; [facility] ; [facility],Home Healthcare Other Interventions: Discharge Summary Assessment (RN) Last Done: 07/31/21 13:18 Supervising Physician Co-Signing Physician Notes Patient was seen and examined independently. Chart was reviewed. Case was discussed with CONCHIS. Agree with assessment and plan as above. Home Health Attestation I certify that this patient is under my care and that I, or a physicians resident assistant working with me, had a face to-face encounter that meets the home health [id number] encounter requirements with this patient. The encounter with the patient was in whole, or in part, for the following medical condition, which is the primary reason for home health care (list medical condition): fall- osteoarthritis I certify that, based on my findings, the following services are medically necessary home health services: My clinical findings support the need for the above services because: OT Assess ADL Status and Restore Function w ADLs PT Assessment for Endurance / Balance / Strength PT Eval for Safety and Mobility PT Eval for Safety, Gait Training, Assistive Devices PT Gait and Balance Training, Strengthening and Safety Further, I certify that my clinical findings support that this patient is homebound (i.e. absences from home require considerable and taxing effort and are for medical reasons or zoroastrianism services or infrequently or of short duration when for other reasons) because: Supportive Aid - Walker Transportation Assistance/Unable to Leave Home Unassisted Certification for Home Health Services: Based on the above findings, I certify that this patient is confined to the home and needs intermittent senior living care, physical therapy and/or speech therapy or continues to need occupational therapy. The patient is under my care, and I have initiated the establishment of the plan of care. This patient will be followed by a physician who will periodically review the plan of care.
== END 2021-07-31 14:27 | disposition home health service (06) | DRG 556 ==
LOC: ED 15:26 → 3N 20:41